=== PATIENT | male | born 1965 | race Caucasian/White ===

== ENCOUNTER 2021-12-05 18:12 | Emergency (ER) | payer BC ==
[~2021-12-05] VITALS: Ht 172.7 cm; Wt 87.7 kg
[2021-12-05] MEDS ORDERED: LISINOPRIL2.5 MG PO (18:36)
[2021-12-05] MEDS ORDERED: SIMVASTATIN10 MG PO (18:36)
[2021-12-05] MEDS ORDERED: SYNTHROID112 MCG PO (18:37)
[2021-12-05] MEDS ORDERED: KEFLEX500 MG PO (18:42)
[2021-12-05 19:10] VITALS: BP 119/89
== END 2021-12-05 19:10 | disposition home or self-care (01) | DRG 605 ==
LOC: ED 18:12
DX: S61.011A Laceration without foreign body of right thumb without damage to nail, initial encounter (principal); W26.0XXA Contact with knife, initial encounter

== ENCOUNTER 2023-04-12 12:45 | Emergency (ER) | payer BC ==
[~2023-04-12] VITALS: Ht 172.7 cm; Wt 95.5 kg
[~2023-04-12 12:45] MED LIST: KEFLEX500 MG PO; LISINOPRIL2.5 MG PO; SIMVASTATIN10 MG PO; SYNTHROID112 MCG PO
[2023-04-12 12:56] VITALS: BP 143/99
[2023-04-12 13:00] VITALS: BP 148/102
[2023-04-12 13:13] VITALS: BP 138/93
[2023-04-12 13:30] VITALS: BP 144/95
[2023-04-12 14:03] VITALS: BP 144/95
== END 2023-04-12 14:10 | disposition left against medical advice (07) | DRG 923 ==
LOC: ED 12:45
DX: Z04.1 Encounter for examination and observation following transport accident (principal); I10 Essential (primary) hypertension; E78.00 Pure hypercholesterolemia, unspecified; K21.9 Gastro-esophageal reflux disease without esophagitis; M54.50 Low back pain, unspecified; G89.29 Other chronic pain; Z53.29 Procedure and treatment not carried out because of patient's decision for other reasons